=== PATIENT | female | born 1950 | race Caucasian/White ===

== ENCOUNTER 2018-03-12 07:23 | Day surgery (SDC) | payer OTHER, BC ==
[~2018-03-12] VITALS: Ht 174 cm; Wt 120.2 kg
[~2018-03-12 07:23] MED LIST: ALEVE220 M2 PO; CALCIUM PLUS M1 EAC1 PO; CLARITIN10 MG PO; COZAAR100 MG PO; FIBER THERAPY500 MG PO; FISH OIL 1,2001 EAC4 PO; ONE DAILY WOME1 EACH PO; OSTEO BI-FLEX1 EAC1 PO; ZANTAC150 MG PO
[2018-03-12 08:28] VITALS: BP 138/69
[2018-03-12 11:55] VITALS: BP 159/74
== END 2018-03-12 13:05 | disposition home or self-care (01) ==
LOC: SDC 07:23
DX: H35.371 Puckering of macula, right eye (principal); H35.81 Retinal edema; E66.01 Morbid (severe) obesity due to excess calories; Z68.41 Body mass index [BMI] 40.0-44.9, adult; I10 Essential (primary) hypertension; M19.90 Unspecified osteoarthritis, unspecified site; E78.00 Pure hypercholesterolemia, unspecified; K21.9 Gastro-esophageal reflux disease without esophagitis
CPT/HCPCS: J0690; J0713; J1580; J2250; J3300